=== PATIENT | female | born 1970 | race Caucasian/White ===

== ENCOUNTER → 2016-10-20 | Outpatient (CLI) | payer OTHER ==
[~2016-10-20] MED LIST: CARISOPRODOL350 MG PO; CIPRO500 MG PO; CIPROFLOXACIN500 M1; CLONAZEPAM0.5 MG PO; CYMBALTA60 MG PO; DEXILANT60 MG PO; DIAZEPAM5 MG; ESTRACE0.5 MG PO; FETZIMA40 MG PO; FLAGYL500 MG PO; IBUPROFEN800 MG PO; LINZESS290 MCG; METRONIDAZOLE500 MG; OMEPRAZOLE40 M1; OMEPRAZOLE40 M1 PO; OXYCODONE HCL5 MG; OXYCODONE HCL5 MG PO; SYNTHROID25 MCG PO; SYNTHROID50 MCG PO; TRAZODONE HCL50 MG PO; VITAMIN D31000 UNIT PO; VIVELLE-DOT0.05 MG; VIVELLE-DOT0.05 MG TD; VIVELLE-DOT0.1 MG; VIVELLE-DOT0.1 MG TD
== END | disposition home or self-care (01) ==
LOC: CT 20:27
DX: N20.0 Calculus of kidney (principal)
CPT/HCPCS: 74176

== ENCOUNTER 2017-06-03 10:56 | Emergency (ER) | payer OTHER ==
[~2017-06-03] VITALS: Ht 149.9 cm; Wt 59.1 kg
[2017-06-03 12:19] LABS: HEMATOCRIT 44.4 % (36.0-46.0); HEMOGLOBIN 14.9 G/DL (11.9-15.5); MCHC 33.6 G/DL (30.0-36.0); MCV 92.5 FL (83-99); PLATELET COUNT 161 K/uL (156-360); RBC DIS.WIDTH-CV 13.1 % (11.8-14.6); RBC DIS.WIDTH-SD 44.7 % (39-53)
[2017-06-03 12:22] LABS: CHLORIDE 107 mEq/L (99-109); POTASSIUM 4.4 mEq/L (3.7-5.4); SODIUM 141 mEq/L (136-147)
[2017-06-03 12:23] LABS: GLUCOSE 88 mg/dL (70-99)
[2017-06-03 12:27] LABS: CREATININE 0.7 mg/dL (0.6-1.3); GFR ESTIMATE (CALCULATED) > 59 mL/min/
[2017-06-03 12:28] LABS: UREA NITROGEN (BUN) 15 mg/dL (9-23)
[2017-06-03 12:32] LABS: TROP-I INTERPRETATION NEGATIVE; TROPONIN-I < 0.01 ng/mL (0.0-0.30)
[2017-06-03 15:04] LABS: D-DIMER ELISA < 150.00 ng/mLDDU (<230)
[2017-06-03 15:46] VITALS: BP 114/75
== END 2017-06-03 15:40 | disposition home or self-care (01) ==
LOC: RME 10:56 → EME 10:56 → RME 15:40
PROVIDERS: Physician Assistant
DX: R07.89 Other chest pain (principal); A69.20 Lyme disease, unspecified; F41.9 Anxiety disorder, unspecified; F32.9 Major depressive disorder, single episode, unspecified; F17.200 Nicotine dependence, unspecified, uncomplicated; Z85.850 Personal history of malignant neoplasm of thyroid; Z87.442 Personal history of urinary calculi; Z90.49 Acquired absence of other specified parts of digestive tract; Z90.710 Acquired absence of both cervix and uterus; Z88.0 Allergy status to penicillin; Z88.5 Allergy status to narcotic agent
CPT/HCPCS: 71046; 80048; 84484; 85027; 85379; 93005; 99281; 99284

== ENCOUNTER 2017-09-11 12:08 | Emergency (ER) | payer OTHER ==
[~2017-09-11] VITALS: Ht 149.9 cm; Wt 56.9 kg
[2017-09-11 14:05] LABS: APPEARANCE CLEAR ((CLEAR)); BILIRUBIN NEGATIVE; BLOOD NEGATIVE; COLOR YELLOW ((YELLOW)); GLUCOSE (STRIP) NEGATIVE; KETONES NEGATIVE; LEUKOCYTES NEGATIVE; NITRITE NEGATIVE; PROTEIN (STRIP) NEGATIVE; UCUL ADDED? NO; UROBILINOGEN 0.2 MG/DL (0.2-1.0)
[2017-09-11 14:11] LABS: HEMATOCRIT 42.6 % (36.0-46.0); HEMOGLOBIN 14.5 G/DL (11.9-15.5); MCH 30.1 PG (29.0-34.0); MCV 88.6 FL (83-99); PLATELET COUNT 165 K/uL (156-360); RBC DIS.WIDTH-CV 11.9 % (11.8-14.6); RBC DIS.WIDTH-SD 38.7 % (39-53); RED BLOOD COUNT 4.81 M/uL (3.80-5.20); WHITE BLOOD COUNT 7.3 K/uL (4.1-10.2)
[2017-09-11 14:25] LABS: ALBUMIN 4.1 g/dL (3.2-4.8); CHLORIDE 107 mEq/L (99-109); POTASSIUM 4.3 mEq/L (3.7-5.4); SODIUM 140 mEq/L (136-147)
[2017-09-11 14:27] LABS: GLUCOSE 96 mg/dL (70-99)
[2017-09-11 14:29] LABS: TOTAL BILIRUBIN 0.5 mg/dL (0.0-1.0)
[2017-09-11 14:31] LABS: ALKALINE PHOSPHATASE 89 IU/L (3-129); CREATININE 0.7 mg/dL (0.6-1.3); GFR ESTIMATE (CALCULATED) > 59 mL/min/
[2017-09-11 14:32] LABS: UREA NITROGEN (BUN) 15 mg/dL (9-23)
[2017-09-11 14:33] LABS: AST (GOT) 29 IU/L (2-34)
[2017-09-11 14:34] LABS: ALT (GPT) 29 IU/L (3-49)
[2017-09-11 14:40] LABS: QUANTITATIVE HCG < 4.0 MIU/ML
[2017-09-11] MEDS ORDERED: PERCOCET 7.51 TABLET PO (17:45)
[2017-09-11] MEDS ORDERED: ZOFRAN4 MG PO (17:45)
[2017-09-11 18:38] VITALS: BP 103/58
== END 2017-09-11 18:41 | disposition home or self-care (01) ==
LOC: EME 12:08 → RME 12:08
DX: K57.30 Diverticulosis of large intestine without perforation or abscess without bleeding (principal); E05.90 Thyrotoxicosis, unspecified without thyrotoxic crisis or storm; F17.200 Nicotine dependence, unspecified, uncomplicated; F32.9 Major depressive disorder, single episode, unspecified; F43.10 Post-traumatic stress disorder, unspecified; Z87.442 Personal history of urinary calculi; Z90.49 Acquired absence of other specified parts of digestive tract; Z85.850 Personal history of malignant neoplasm of thyroid; Z88.5 Allergy status to narcotic agent; Z88.0 Allergy status to penicillin
CPT/HCPCS: 74177; 80053; 81003; 84702; 85027; 99281; 99285; J0744; J2765; J3010; J7120